=== PATIENT | female | born 1960 | race Caucasian/White ===

== ENCOUNTER 2018-07-14 05:41 | Day surgery (SDC) | payer MEDICAID ==
[~2018-07-14] VITALS: Ht 157.5 cm; Wt 105.7 kg
[2018-07-14] MEDS ORDERED: LACTATED RINGERS 1,000 ML IV SCH (07:00)
[2018-07-14] MEDS ORDERED: METO-396 PO (08:15)
[2018-07-14] MEDS ORDERED: LOSA100T14 PO (08:15)
[2018-07-14] MEDS ORDERED: ATOR40TA70 PO (08:15)
[2018-07-14] MEDS ORDERED: ASPI-1159 PO (08:15)
[2018-07-14] MEDS ORDERED: METF-414 PO (08:15)
[2018-07-14] MEDS ORDERED: BUPIVACAINE/EPINEPH/PF 0.25%/0.0005 10ML ONE (08:35)
[2018-07-14] MEDS ORDERED: MORPHINE SULFATE/PF 1MG/ML 10ML AMP ONE (08:35)
[2018-07-14] MEDS ORDERED: PROPOFOL 200MG/20ML VIAL IV ONE (09:13)
[2018-07-14] MEDS ORDERED: MIDAZOLAM HCL 2 MG/2 ML VIAL ONE (09:13)
[2018-07-14] MEDS ORDERED: FENTANYL CITRATE/PF 50MCG/ML 2ML VIAL ONE (09:13)
[2018-07-14] MEDS ORDERED: CEFAZOLIN SODIUM 1000MG/VIAL ONE (10:18)
[2018-07-14] MEDS ORDERED: LIDOCAINE HCL/PF 1% 10 MG/ML 5ML VIAL ONE (10:18)
[2018-07-14] MEDS ORDERED: EPHEDRINE SULFATE 50MG/ML VIAL ONE (10:35)
[2018-07-14] MEDS ORDERED: FENTANYL CITRATE/PF 50MCG/ML 2ML VIAL IV PRN (11:15)
[2018-07-14] MEDS ORDERED: ONDANSETRON HCL 4MG/2ML INJ IV PRN (11:15)
[2018-07-14] MEDS ORDERED: HYDROMORPHONE HCL/PF 2MG/ML CPJ IV PRN (11:15)
[2018-07-14] MEDS ORDERED: MEPERIDINE HCL/PF 25MG/ML CPJ IV PRN (11:15)
[2018-07-14] MEDS ORDERED: ONDANSETRON HCL 4MG/2ML INJ ONE (11:44)
[2018-07-14] MEDS ORDERED: HYDROCODONE/ACETAMINOPHEN 10/325MG TABLET PO PRN (12:30)
== END 2018-07-14 14:35 | disposition home or self-care (01) ==
LOC: OR 05:41
PROVIDERS: ATTEND Orthopaedic Surgery
DX: M65.861 Other synovitis and tenosynovitis, right lower leg (principal); M22.41 Chondromalacia patellae, right knee; M23.41 Loose body in knee, right knee; E66.9 Obesity, unspecified; E11.9 Type 2 diabetes mellitus without complications; E78.00 Pure hypercholesterolemia, unspecified; Z90.710 Acquired absence of both cervix and uterus
CPT/HCPCS: 29877; 82962; 88304; 88311; 97116; 97161; J0171; J0690; J2250; J2274; J2405; J2704; J3010; J3490

== ENCOUNTER → 2021-12-18 | Day surgery (SDC) | payer MEDICAID ==
[~2021-12-18] VITALS: Ht 157.5 cm; Wt 107.0 kg
[~2021-12-18] MED LIST: ALBU90AE INH; ASPI-1497 PO; ATOR40TA70 PO; BALANCED SALT IRRIG SOLN 15ML ONE; BALANCED SALT IRRIG SOLN COMB2 500ML OP NR; CYCLOPENTOLATE HCL 1% OPHTH DROPS 2ML LEFTEYE SCH; CYCLOPENTOLATE HCL 1% OPHTH DROPS 2ML ONE; FENTANYL CITRATE/PF 50MCG/ML 2ML VIAL ONE; HYALURONATE SODIUM 10 MG/ML 0.55ML SYRINGE IO ONE; LIDOCAINE HCL/PF 2% 20 MG/ML 10ML VIAL ONE; LOSA100T32 PO; METF-414 PO; METO-396 PO; MIDAZOLAM HCL 2 MG/2 ML VIAL ONE; NEO/POLYMYX B SULF/DEXAMETH OPHTH OINT 3.5GM ONE; PHENYLEPHRINE HCL 10% OPHTH DROPS 5ML LEFTEYE SCH; PHENYLEPHRINE HCL 10% OPHTH DROPS 5ML ONE; PREDNISOLONE ACETATE 1% OPHTH DROPS 5ML ONE; SODIUM CHLORIDE 0.9% 1,000 ML IV SCH; TETRACAINE 0.5% OPHTH DROPS 4ML ONE; TROPICAMIDE 1% OPHTH DROPS 15ML LEFTEYE SCH; TROPICAMIDE 1% OPHTH DROPS 15ML ONE; TRYPAN BLUE 0.5 ML DISP.SYRIN IO ONE
[2021-12-18 06:08] LABS: HEMATOCRIT. 38.9 % (36.0-48.0); HEMOGLOBIN. 12.6 g/dL (12.0-16.0); MEAN CORPUSCULAR HEMOGLOBIN 27.7 pg (28.0-32.0); MEAN CORPUSCULAR VOLUME 85.8 fL (81.0-99.0); MEAN PLATELET VOLUME 7.5 fl (7.4-10.4); PLATELET 311 x1000/uL (130-400); RED BLOOD CELL COUNT 4.54 mill/uL (4.2-5.4)
[2021-12-18 06:10] LABS: CHLORIDE 107 mEq/L (98-107)
[2021-12-18 07:16] LABS: PLATELET ESTIMATE NORMAL
== END | disposition home or self-care (01) ==
LOC: OR 05:36
PROVIDERS: ATTEND Ophthalmology
DX: E11.36 Type 2 diabetes mellitus with diabetic cataract (principal); H25.22 Age-related cataract, morgagnian type, left eye; I10 Essential (primary) hypertension; M19.90 Unspecified osteoarthritis, unspecified site; E78.5 Hyperlipidemia, unspecified; Z79.899 Other long term (current) drug therapy; Z98.890 Other specified postprocedural states; Z79.82 Long term (current) use of aspirin; Z79.84 Long term (current) use of oral hypoglycemic drugs; Z20.822 Contact with and (suspected) exposure to COVID-19
CPT/HCPCS: 36415; 66984; 80048; 85025; 87426; C9803; J2250; J3010; J3490; Q9957; V2632

== ENCOUNTER → 2023-05-20 | Day surgery (SDC) | payer MEDICAID ==
[~2023-05-20] VITALS: Ht 157.5 cm; Wt 113.4 kg
[~2023-05-20] MED LIST changes: -BALANCED SALT IRRIG SOLN 15ML ONE; +BALANCED SALT IRRIG SOLN COMB1 500ML OP NR; -BALANCED SALT IRRIG SOLN COMB2 500ML OP NR; -CYCLOPENTOLATE HCL 1% OPHTH DROPS 2ML LEFTEYE SCH; -CYCLOPENTOLATE HCL 1% OPHTH DROPS 2ML ONE; +CYCLOPENTOLATE HCL 1% OPHTH DROPS 2ML RIGHTEYE NR; +KETOROLAC 30MG/ML VIAL ONE; -LIDOCAINE HCL/PF 2% 20 MG/ML 10ML VIAL ONE; -LOSA100T32 PO; +LOSA100T33 PO; -NEO/POLYMYX B SULF/DEXAMETH OPHTH OINT 3.5GM ONE; -PHENYLEPHRINE HCL 10% OPHTH DROPS 5ML LEFTEYE SCH; -PHENYLEPHRINE HCL 10% OPHTH DROPS 5ML ONE; +PHENYLEPHRINE HCL 10% OPHTH DROPS 5ML RIGHTEYE NR; -PREDNISOLONE ACETATE 1% OPHTH DROPS 5ML ONE; -TETRACAINE 0.5% OPHTH DROPS 4ML ONE; -TROPICAMIDE 1% OPHTH DROPS 15ML LEFTEYE SCH; -TROPICAMIDE 1% OPHTH DROPS 15ML ONE; +TROPICAMIDE 1% OPHTH DROPS 15ML RIGHTEYE NR
== END | disposition home or self-care (01) ==
LOC: OR 06:41
PROVIDERS: ATTEND Ophthalmology
DX: E11.36 Type 2 diabetes mellitus with diabetic cataract (principal); H25.89 Other age-related cataract; E78.5 Hyperlipidemia, unspecified; M19.90 Unspecified osteoarthritis, unspecified site; Z79.84 Long term (current) use of oral hypoglycemic drugs; Z79.82 Long term (current) use of aspirin; Z79.899 Other long term (current) drug therapy; Z90.710 Acquired absence of both cervix and uterus; Z98.890 Other specified postprocedural states
CPT/HCPCS: 66984; 82962; J3010; J1885; J2250; J3490; V2632; Q9957